=== PATIENT | female | born 1980 | race Caucasian/White ===

== ENCOUNTER 2017-03-12 15:17 | Emergency (ER) | payer OTHER ==
[2017-03-12 17:00] VITALS: BP 164/89
--- OUTSIDE RECORDS SUMMARY | 2017-03-12 17:27 | XMS REPORT | Continuity of Care Document ---
:1980 Author Organization [facility] ([facility]) Address [address] [place] [address] Phone [phone] Care Team Providers Name Role Phone Sachin Avalos Primary Care Provider [phone] Source Comments This disclosure is being made pursuant to the Care Everywhere program, applicable federal and state laws, and may not contain all informaitonavailable regarding this patient.[facility] ([facility]) Active Allergies and Adverse Reactions Allergen Noted Date Severity Reactions Comments Sumatriptan Pruritus,Nausea & Vomiting,Flushing Current Medications Prescription Sig. Disp. Refills Start Date End Date Status propranolol (INDERAL take 60 mg by mouth Active LA) 60 mg cap daily. topiramate (TOPIRAGEN) Take 25 mg by mouth 2 Active 25 mg tablet times daily. LORazepam 1 mg tablet Take 1 mg by mouth 4 Active times daily. omeprazole 20 mg Take 20 mg by mouth Active extended release daily. capsule cyclobenzaprine 10 mg Take 10 mg by mouth 3 Active tablet times daily as needed. 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 Medication monitoring encounter 12/22/2013 Overview: methimazole Abnormal thyroid function test 12/22/2013 Overview: 12/20/13 Throat pain 02/16/2009 Headache(784.0) 02/16/2009 Thyrotoxicosis without mention of goiter or other cause, without mention 01/08 of thyrotoxic crisis or storm Social History Tobacco Use Types Packs/Day Years Used Date Current Every Day Smoker 0.5 Tobacco Cessation:Ready to Quit: No; Counseling Given: Yes Comments: Alcohol Use Drinks/Week oz/Week Comments Yes Last Filed Vital Signs Vital Sign Reading Time Taken Blood Pressure 142/78 12/20/2013 2:47 PM FLIGHT FOLLOWER Pulse 83 12/20/2013 2:47 PM FLIGHT FOLLOWER Temperature 36.3 C (97.3 F) 12/20/2013 2:47 PM FLIGHT FOLLOWER Respiratory Rate 20 05/03/2009 9:15 PM CDT Height 1.68 m (5' 6.14") 12/20/2013 2:47 PM FLIGHT FOLLOWER Weight 116.8 kg (257 lb 8 oz) 12/20/2013 2:47 PM FLIGHT FOLLOWER Body Mass Index 41.38 12/20/2013 2:47 PM FLIGHT FOLLOWER Oxygen Saturation 98% 05/03/2009 9:15 PM CDT Plan of Care Health Maintenance Due Date Last Done Comments Hepatitis B Vaccine (1 of 3 - Primary Series) 1980 Tdap Vaccine 1989 Lipid Disorder Screening 1996 MMR Vaccine 1996 Td Vaccine 1996 Pneumococcal Vaccine (1 of 1 - PPSV23) 1997 Cervical Cancer Screening 2008 Influenza Vaccine: Seasonal (#1) 06/21/2016 Results from Last 3 Months Not on file
[2017-03-12] MEDS ORDERED: PROMETHAZINE HCL 25 MG/ML AMPUL IM ONE (17:39)
[2017-03-12] MEDS ORDERED: NALBUPHINE HCL 20 MG/ML AMPUL IM ONE (17:39)
[2017-03-12] MEDS ORDERED: PROMETHAZINE HCL 25 MG/ML AMPUL ONE (17:43)
[2017-03-12] MEDS ORDERED: NALBUPHINE HCL 20 MG/ML AMPUL ONE (17:43)
--- NOTE | 2017-03-12 17:50 | ERNOTE ---
Headache ER HPI - Narrative Date of Service: 03/12/17 - General Presenting Symptoms: "migraine" Time Seen by Provider: 03/12/17 17:16 Source: patient Exam Limitations: no limitations - Immun/Allergies/Home Medications Immunizations: IMMUNIZATION HX Immunizations Up to Date Yes History of Influenza Vaccine No Hx Pneumococcal Vaccination No Allergies/Adverse Reactions: Allergies Penicillins Adverse Reaction (Mild, Verified 03/12/17 16:59) MIGRAINE, GI DISTRESS sumatriptan [From Imitrex] Adverse Reaction (Mild, Verified 03/12/17 16:59) N/V sumatriptan succinate [From Imitrex] Adverse Reaction (Mild, Verified 03/12/17 16:59) N/V tramadol Adverse Reaction (Mild, Verified 03/12/17 16:59) N/V, MIGRAINE Home Medications: HOME MEDICATIONS Propranolol HCl [Propranolol HCl ER] 80 mg PO DAILY 11/25/12 [Last Taken ] ALPRAZolam [Xanax] 1 mg PO QID 06/04/15 [Last Taken 04/03/16] Zolpidem Tartrate [Ambien] 10 mg PO HS PRN 06/04/15 [Last Taken 04/03/16] Topiramate [Topamax] 200 mg PO DAILY 02/07/16 [Last Taken 04/03/16] Nabumetone 750 mg PO BID 03/12/17 [Last Taken Unknown] - Pain Pain Score: 9 - History of Present Illness Narrative: Patient is a 36 year old female who presents to the ED with complaints of migraine. Patient states she has a history of migraines and that "this feels like her normal migraines". Denies being "the worst pain in my life". States pain started Tuesday morning, stating that she awoke with pain accompanied with nausea. Denies vomiting or photophobia. States that she has been compliant with all her home medications including HTN and migraine meds. States has had 2 Botox treatments which she just started for migraines and that it has helped a little. Admits to being under excessive stress lately with her grandmother passing away in December and her mother passing away unexpectedly in January. Denies SOB, chest pain, difficulty breathing, seizure or aura Date (Duration): 03/11/17 Activity at onset: other - awoke from sleep with pain Timing of Headache: abrupt, constant, worse Context Headache: Present: other - chronic migraines, states normal pain/ presentation Quality: Present: pressure, sharp, stabbing Severity Maximum: Present: severe Severity-Currently: Present: severe Headache frequency: Present: chronic headaches, similar to previous headache Modifying Factors - (Improves): Reports: other - nothing has helped so far Modifying Factors - (Worsens): Reports: movement Associated Symptoms: Reports: nausea. Denies: fever/chills, vomiting, sweating , nasal congestion, nasal drainage, facial pain, weakness, numbness/tingling, vision changes, light-headedness, dizziness, loss of consciousness, seizures, speech problems Exacerbated by:: Reports: noise, movement, other - smells Prior Treament: Reports: similar symptoms before Review of Systems - Review of Systems Constitutional: Present: other - recent severe stress. Absent: recent illness, fever, chills EYE: Absent: eye pain, eye discharge, blurred vision, double vision, vision changes ENT: Present: no symptoms reported Respiratory: Present: no symptoms reported. Absent: shortness of breath, cough , orthopnea, wheezing Cardiology: Present: no symptoms reported. Absent: chest pain, palpitations, syncope, edema Gastrointestinal/Abdominal: Present: nausea. Absent: vomiting, diarrhea, constipation, abdominal pain, eating less Genitourinary: Present: no symptoms reported Musculoskeletal: Present: no symptoms reported Neurological: Present: anxiety, depressed, headache. Absent: dizziness/light- headedness, seizure, weakness, numbness, tingling Endocrine: Present: no symptoms reported Hematologic/Lymphatic: Present: no symptoms reported Psych: Present: no symptoms reported - Patient's Past Medical History Patient History - Medical: Anxiety, Depression, GERD, Headache, Migraines Patient History - Cardiac/Respiratory: Hypertension Patient History - Cancer: No Hx of Cancer Patient History - Surgical Procedures: Cholecystectomy, D & C, Hysterectomy, Tubal Ligation Patient History - Other: None LMP (females 10-50): other LMP (Calendar): 12/06/15 - Family History Mother Family History - Medical: Diabetes Type 2, Depression, GERD, Migraines Family History - Cardiac/Respiratory: No pertinent hx Father Family History - Medical: Diabetes Type 2, GERD Family History - Cardiac/Respiratory: Myocardial Infarction, Other - Social History Living Situations: home Abuse History: No History of abuse Psych History: Hx of Anxiety, Hx of Depression Does anyone smoke in the home?: Yes Smoking Status: Current every day smoker Alcohol Use: occasionally Drug Use: none - Immunizations Immunizations Up to Date: Yes Hx Pneumococcal Vaccination: No History of Influenza Vaccine: No Physical Exam - Physical Exam General Appearance: Present: wd/wn, alert, no apparent distress, crying Eye Exam: Normal inspection: bilateral, PERRL: bilateral Ears, Nose, Throat: Present: normal ENT inspection, normal pharynx Neck: Present: normal inspection, nontender, supple, full range of motion. Absent: lymphadenopathy (R), lymphadenopathy (L) Respiratory: Present: no respiratory distress, normal breath sounds, no accessory muscle use, chest nontender, lungs clear Cardiovascular/Chest: Present: regular rate, rhythm, no murmur, normal peripheral pulses Peripheral Pulses: N=norm/S=strong/W=weak/B=bound/A=absent: Radial (R): Normal, Radial (L): Normal Gastrointestinal/Abdominal: Present: normal bowel sounds, nontender, nondistended, soft, no organomegaly Rectal Exam: Present: deferred Back Exam: Present: normal inspection, normal range of motion, no CVA tenderness , no vertebral tenderness Extremity Exam: Present: normal inspection, non-tender, normal range of motion, no edema Neurological Exam: Present: alert, oriented, normal mood/affect, no motor/ sensory deficits Skin Exam: Present: normal color, warm/dry. Absent: diaphoresis, cyanosis, jaundice, skin rash Lymphatic Exam: Present: no adenopathy ED Progress - Vital Signs Patient's Vital Signs:: I have reviewed the patient's vital signs. Vital Signs: Vital Signs 03/12/17 16:57 Temperature 36.6 C Pulse Rate 77 Respiratory 16 Rate Blood Pressure 164/89 O2 Sat by Pulse 100 Oximetry - Progress/Reassessment Chief Complaint: Headache Progress:: Improved Departure Clinical Impression: Chronic migraine without aura Qualifiers: Status migrainosus presence: without status migrainosus Intractability: not intractable Qualified Code(s): G43.709 - Chronic migraine without aura, not intractable, without status migrainosus - Departure Disposition: Home self-care Condition: Good Instructions: Recurrent Migraine Headache, [id number] Additional Instructions: Continue previously prescribed medications. 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 Return if migraines worsen or seizure, dizziness or changes in vision occur. Referrals: Silvia Monk ARNP [Primary Care Provider] -
== END 2017-03-12 18:25 | disposition home or self-care (01) ==
LOC: ER 15:17
DX: G43.709 Chronic migraine without aura, not intractable, without status migrainosus (principal); F17.210 Nicotine dependence, cigarettes, uncomplicated; F41.9 Anxiety disorder, unspecified; F32.9 Major depressive disorder, single episode, unspecified

== ENCOUNTER 2017-03-26 17:10 | Emergency (ER) | payer OTHER ==
[2017-03-26 17:20] VITALS: BP 163/88
--- NOTE | 2017-03-26 17:50 | ERNOTE ---
Integumentary HPI - Narrative Date of Service: 03/26/17 - General Presenting Symptoms: insect bite Time Seen by Provider: 03/26/17 17:43 Source: patient Exam Limitations: no limitations - Immun/Allergies/Home Medications Immunizations: IMMUNIZATION HX Immunizations Up to Date Yes History of Influenza Vaccine No Hx Pneumococcal Vaccination No Allergies/Adverse Reactions: Allergies Allergy/AdvReac Type Severity Reaction Status Date / Time Penicillins AdvReac Mild MIGRAINE, Verified 03/26/17 17:20 GI DISTRESS sumatriptan [From Imitrex] AdvReac Mild N/V Verified 03/26/17 17:20 sumatriptan succinate AdvReac Mild N/V Verified 03/26/17 17:20 [From Imitrex] tramadol AdvReac Mild N/V, Verified 03/26/17 17:20 MIGRAINE Home Medications: HOME MEDICATIONS Propranolol HCl [Propranolol HCl ER] 80 mg PO DAILY 11/25/12 [Last Taken ] ALPRAZolam [Xanax] 1 mg PO QID 06/04/15 [Last Taken 04/03/16] Zolpidem Tartrate [Ambien] 10 mg PO HS PRN 06/04/15 [Last Taken 04/03/16] Topiramate [Topamax] 200 mg PO DAILY 02/07/16 [Last Taken 04/03/16] Nabumetone 750 mg PO BID 03/12/17 [Last Taken Unknown] Clindamycin HCl [Cleocin HCl] 300 mg PO TID #30 capsule 03/26/17 [Last Taken Unknown] HYDROcodone/ACETAMINOPHEN [[place] 5-325] 1 each PO DAILY 03/26/17 [Last Taken Unknown] - Pain Pain Score: 2 - History of Present Illness Narrative: 36-year-old female presents emergency room for a bout bite to her chest. Patient states that a spider fell down her shirt and then her several days ago. Patient states that the area is red and tender and she has been unable to express any fluid from the site Date (Duration): 03/26/17 Location: Reports: torso Quality: Reports: painful Severity: mild Exposure: Reports: insect bite/spider Modifying Factors - (Improves): Reports: nothing Modifying Factors - (Worsens): Reports: nothing Associated Symptoms: Reports: denies symptoms Review of Systems - Review of Systems Constitutional: Present: no symptoms reported EYE: Present: no symptoms reported ENT: Present: no symptoms reported Respiratory: Present: no symptoms reported Cardiology: Present: no symptoms reported Gastrointestinal/Abdominal: Present: no symptoms reported Genitourinary: Present: no symptoms reported Musculoskeletal: Present: no symptoms reported Skin: Present: See HPI, lesions Neurological: Present: no symptoms reported Endocrine: Present: no symptoms reported Hematologic/Lymphatic: Present: no symptoms reported Psych: Present: no symptoms reported - Patient's Past Medical History Patient History - Medical: Anxiety, Depression, GERD, Headache, Migraines Patient History - Cardiac/Respiratory: Hypertension Patient History - Cancer: No Hx of Cancer Patient History - Surgical Procedures: Cholecystectomy, D & C, Hysterectomy, Tubal Ligation Patient History - Other: None LMP (Calendar): 12/06/15 - Family History Mother Family History - Medical: Diabetes Type 2, Depression, GERD, Migraines Family History - Cardiac/Respiratory: No pertinent hx Father Family History - Medical: Diabetes Type 2, GERD Family History - Cardiac/Respiratory: Myocardial Infarction, Other - Social History Living Situations: home Abuse History: No History of abuse Psych History: Hx of Anxiety, Hx of Depression Does anyone smoke in the home?: Yes Smoking Status: Current every day smoker Have you smoked in the past 12 months: Yes Alcohol Use: occasionally Drug Use: none - Immunizations Immunizations Up to Date: Yes Hx Pneumococcal Vaccination: No History of Influenza Vaccine: No Physical Exam - Physical Exam Narrative: patients insect bite is red, warm and tender. It is firm and in the upper center part of her sternum. General Appearance: Present: wd/wn, alert, no apparent distress Eye Exam: Normal inspection: bilateral Ears, Nose, Throat: Present: normal ENT inspection Neck: Present: normal inspection, nontender, full range of motion. Absent: lymphadenopathy (R), lymphadenopathy (L) Respiratory: Present: no respiratory distress, normal breath sounds, no accessory muscle use, lungs clear Cardiovascular/Chest: Present: regular rate, rhythm, no murmur, normal peripheral pulses Gastrointestinal/Abdominal: Present: normal bowel sounds, nontender, nondistended, soft, no organomegaly Back Exam: Present: normal inspection, normal range of motion, no CVA tenderness , no vertebral tenderness Extremity Exam: Present: normal inspection, normal range of motion, no edema Neurological Exam: Present: alert, oriented, normal mood/affect, no motor/ sensory deficits Skin Exam: Present: other - see note, Rest of skin is WNL Lymphatic Exam: Present: no adenopathy. Absent: axilla node (R), axilla node (L ) ED Progress - Vital Signs Patient's Vital Signs:: I have reviewed the patient's vital signs. Vital Signs: Vital Signs 03/26/17 17:16 Temperature 37.1 C Pulse Rate 93 Respiratory 16 Rate Blood Pressure 163/88 O2 Sat by Pulse 99 Oximetry - Progress/Reassessment Chief Complaint: Cellulitis Progress:: Unchanged Departure Clinical Impression: Cellulitis Qualifiers: Site of cellulitis: trunk Site of cellulitis of trunk: chest wall Qualified Code(s): L03.313 - Cellulitis of chest wall - Departure Disposition: Home Follow Up Needed Condition: Stable Instructions: Cellulitis, Adult, [id number] Additional Instructions: Continue any previous home medications directed. Take antibiotics as instructed. She may take [id number] pain medications as needed for pain. Return to the emergency room if signs symptoms of infection continued persistent or worsening symptoms arise. Follow-up with your primary care provider in the next 2-3 days. Referrals: Silvia Monk ARNP [Primary Care Provider] - Prescriptions: Clindamycin HCl [Cleocin HCl] 300 mg PO TID #30 capsule
--- OUTSIDE RECORDS SUMMARY | 2017-03-26 17:55 | XMS REPORT | Continuity of Care Document ---
:1980 Author Organization [facility] ([facility]) Address [address] [place] [address] Phone [phone] Care Team Providers Name Role Phone Sachin Avalos Primary Care Provider [phone] Source Comments This disclosure is being made pursuant to the Care Everywhere program, applicable federal and state laws, and may not contain all informaitonavailable regarding this patient.[facility] ([facility]) Active Allergies and Adverse Reactions Allergen Noted [...] Taken Blood Pressure 142/78 12/20/2013 2:47 PM STOGY MAKER Pulse 83 12/20/2013 2:47 PM STOGY MAKER Temperature 36.3 C (97.3 F) 12/20/2013 2:47 PM STOGY MAKER Respiratory Rate 20 05/03/2009 9:15 PM CDT Height 1.68 m (5' 6.14") 12/20/2013 2:47 PM STOGY MAKER Weight 116.8 kg (257 lb 8 oz) 12/20/2013 2:47 PM STOGY MAKER Body Mass Index 41.38 12/20/2013 2:47 PM STOGY MAKER Oxygen Saturation 98% 05/03/2009 9:15 PM CDT [...]
== END 2017-03-26 17:50 | disposition home or self-care (01) ==
LOC: ER 17:10
DX: L03.313 Cellulitis of chest wall (principal); F17.210 Nicotine dependence, cigarettes, uncomplicated; F41.9 Anxiety disorder, unspecified; F32.9 Major depressive disorder, single episode, unspecified; I10 Essential (primary) hypertension

== ENCOUNTER 2017-03-28 19:25 | Emergency (ER) | payer OTHER ==
[2017-03-28] MEDS ORDERED: NALBUPHINE HCL 20 MG/ML AMPUL IM ONE (20:20)
[2017-03-28] MEDS ORDERED: PROMETHAZINE HCL 25 MG/ML AMPUL IM ONE (20:21)
[2017-03-28] MEDS ORDERED: PROMETHAZINE HCL 25 MG/ML AMPUL ONE (20:25)
[2017-03-28] MEDS ORDERED: NALBUPHINE HCL 20 MG/ML AMPUL ONE (20:25)
--- NOTE | 2017-03-28 20:26 | ERNOTE ---
Headache ER HPI - Narrative Date of Service: 03/28/17 - General Presenting Symptoms: "migraine" Time Seen by Provider: 03/28/17 20:18 Source: patient Exam Limitations: no limitations - Immun/Allergies/Home Medications Immunizations: IMMUNIZATION HX Immunizations Up to Date Yes History of Influenza Vaccine No Hx Pneumococcal Vaccination No Allergies/Adverse Reactions: Allergies Penicillins Adverse Reaction (Mild, Verified 03/26/17 17:20) MIGRAINE, GI DISTRESS sumatriptan [From Imitrex] Adverse Reaction (Mild, Verified 03/26/17 17:20) N/V sumatriptan succinate [From Imitrex] Adverse Reaction (Mild, Verified 03/26/17 17:20) N/V tramadol Adverse Reaction (Mild, Verified 03/26/17 17:20) N/V, MIGRAINE Home Medications: HOME MEDICATIONS Propranolol HCl [Propranolol HCl ER] 80 mg PO DAILY 11/25/12 [Last Taken ] ALPRAZolam [Xanax] 1 mg PO QID 06/04/15 [Last Taken 04/03/16] Zolpidem Tartrate [Ambien] 10 mg PO HS PRN 06/04/15 [Last Taken 04/03/16] Topiramate [Topamax] 200 mg PO DAILY 02/07/16 [Last Taken 04/03/16] Nabumetone 750 mg PO BID 03/12/17 [Last Taken Unknown] Clindamycin HCl [Cleocin HCl] 300 mg PO TID #30 capsule 03/26/17 [Last Taken Unknown] HYDROcodone/ACETAMINOPHEN [[place] 5-325] 1 each PO DAILY 03/26/17 [Last Taken Unknown] Amitriptyline HCl [Elavil] 50 mg PO DAILY PRN 03/28/17 [Last Taken Unknown] - Pain Pain Score: 7 - History of Present Illness Narrative: patient is having a migraine. she has taken OTC and her PRN medications for her HERNANDEZ and has not been able to get relief. Date (Duration): 03/28/17 Timing of Headache: gradual Context Headache: Present: new onset Quality: Present: achy Severity Maximum: Present: moderate Severity-Currently: Present: moderate Headache frequency: Present: chronic headaches Modifying Factors - (Improves): Reports: rest, medication Modifying Factors - (Worsens): Reports: movement, exposure to light Associated Symptoms: Reports: nausea. Denies: fever/chills, vomiting, fatigue, vision changes, dizziness, loss of consciousness, seizures, speech problems Exacerbated by:: Reports: light, noise, movement, other - smell Prior Treament: Reports: similar symptoms before Review of Systems - Review of Systems Constitutional: Present: See HPI, fatigue EYE: Present: no symptoms reported ENT: Present: no symptoms reported Respiratory: Present: no symptoms reported Cardiology: Present: no symptoms reported Gastrointestinal/Abdominal: Present: See HPI, nausea Genitourinary: Present: no symptoms reported Musculoskeletal: Present: no symptoms reported Skin: Present: no symptoms reported Neurological: Present: See HPI, headache. Absent: dizziness/light-headedness, tingling Endocrine: Present: no symptoms reported Hematologic/Lymphatic: Present: no symptoms reported Psych: Present: no symptoms reported - Patient's Past Medical History Patient History - Medical: Anxiety, Depression, GERD, Headache, Migraines, Other Patient History - Cardiac/Respiratory: Hypertension Patient History - Cancer: No Hx of Cancer Patient History - Surgical Procedures: Cholecystectomy, D & C, Hysterectomy, Tubal Ligation Patient History - Other: None LMP (Calendar): 12/06/15 - Family History Mother Family History - Medical: Diabetes Type 2, Depression, GERD, Migraines Family History - Cardiac/Respiratory: No pertinent hx Father Family History - Medical: Diabetes Type 2, GERD, Other Family History - Cardiac/Respiratory: Hypertension Family History - Cancer: No pertinent family hx - Social History Living Situations: alone Abuse History: No History of abuse Psych History: Hx of Anxiety, Hx of Depression Does anyone smoke in the home?: Yes Smoking Status: Current every day smoker Have you smoked in the past 12 months: Yes Alcohol Use: rarely Drug Use: none - Immunizations Immunizations Up to Date: Yes Hx Pneumococcal Vaccination: No History of Influenza Vaccine: No Physical Exam - Physical Exam Narrative: patient has light sensitivity. General Appearance: Present: wd/wn, alert, no apparent distress Eye Exam: Normal inspection: bilateral Ears, Nose, Throat: Present: normal ENT inspection, normal pharynx Neck: Present: normal inspection Respiratory: Present: no respiratory distress, normal breath sounds, lungs clear Cardiovascular/Chest: Present: regular rate, rhythm, no murmur, normal peripheral pulses Gastrointestinal/Abdominal: Present: normal bowel sounds, nontender, soft Back Exam: Present: normal inspection, normal range of motion, no CVA tenderness , no vertebral tenderness Extremity Exam: Present: normal inspection, normal range of motion, no edema Neurological Exam: Present: alert, oriented, normal mood/affect, no motor/ sensory deficits Skin Exam: Present: normal color, warm/dry Lymphatic Exam: Present: no adenopathy ED Progress - Vital Signs Patient's Vital Signs:: I have reviewed the patient's vital signs. Vital Signs: Vital Signs 03/28/17 19:46 Temperature 36.9 C Pulse Rate 82 Respiratory 16 Rate Blood Pressure 143/91 O2 Sat by Pulse 98 Oximetry - Progress/Reassessment Chief Complaint: Headache Departure Clinical Impression: Migraine Qualifiers: Migraine type: unspecified Status migrainosus presence: without status migrainosus Intractability: not intractable Qualified Code(s): G43.909 - Migraine, unspecified, not intractable, without status migrainosus - Departure Disposition: Home self-care Condition: Stable Instructions: Recurrent Migraine Headache, [id number] Additional Instructions: Continue previous home medications. Return to emergency rooms if symptoms return or become worse. Follow-up with her doctor in the next 2-3 days if needed. Referrals: Silvia Monk ARNP [Primary Care Provider] -
--- OUTSIDE RECORDS SUMMARY | 2017-03-28 20:39 | XMS REPORT | Continuity of Care Document ---
:1980 Author Organization [facility] ([facility]) Address [address] [place] [address] Phone [phone] Care Team Providers Name Role Phone Sachin Avalos Primary Care Provider [phone] Source Comments This disclosure is being made pursuant to the Care Everywhere program, applicable federal and state laws, and may not contain all informaitonavailable regarding this patient.[facility] ([facility]) Active Allergies and Adverse Reactions Allergen Noted [...] Taken Blood Pressure 142/78 12/20/2013 2:47 PM VISUAL SUPERVISOR Pulse 83 12/20/2013 2:47 PM VISUAL SUPERVISOR Temperature 36.3 C (97.3 F) 12/20/2013 2:47 PM VISUAL SUPERVISOR Respiratory Rate 20 05/03/2009 9:15 PM CDT Height 1.68 m (5' 6.14") 12/20/2013 2:47 PM VISUAL SUPERVISOR Weight 116.8 kg (257 lb 8 oz) 12/20/2013 2:47 PM VISUAL SUPERVISOR Body Mass Index 41.38 12/20/2013 2:47 PM VISUAL SUPERVISOR Oxygen Saturation 98% 05/03/2009 9:15 PM CDT [...]
[2017-03-28 21:15] VITALS: BP 136/97
== END 2017-03-28 20:50 | disposition home or self-care (01) ==
LOC: ER 19:25
DX: G43.909 Migraine, unspecified, not intractable, without status migrainosus (principal); Z72.0 Tobacco use; F41.8 Other specified anxiety disorders; I10 Essential (primary) hypertension

== ENCOUNTER 2017-04-11 17:47 | Emergency (ER) | payer OTHER ==
--- OUTSIDE RECORDS SUMMARY | 2017-04-11 19:11 | XMS REPORT | Continuity of Care Document ---
:1980 Author Organization [facility] ([facility]) Address [address] [place] [address] Phone [phone] Care Team Providers Name Role Phone Sachin Avalos Primary Care Provider [phone] Source Comments This disclosure is being made pursuant to the Care Everywhere program, applicable federal and state laws, and may not contain all informaitonavailable regarding this patient.[facility] ([facility]) Active Allergies and Adverse Reactions Allergen [...] Taken Blood Pressure 142/78 12/20/2013 2:47 PM [employer]TAINER [employer] Pulse 83 12/20/2013 2:47 PM [employer]TAINER [employer] Temperature 36.3 C (97.3 F) 12/20/2013 2:47 PM CONTAINER [employer] Respiratory Rate 20 05/03/2009 9:15 PM CDT Height 1.68 m (5' 6.14") 12/20/2013 2:47 PM [employer]TAINER [employer] Weight 116.8 kg (257 lb 8 oz) 12/20/2013 2:47 PM [employer]TAINER [employer] Body Mass Index 41.38 12/20/2013 2:47 PM [employer]TAINER [employer] Oxygen Saturation 98% 05/03/2009 9:15 PM [...]
[2017-04-11] MEDS ORDERED: diphenhydrAMINE HCL 50 MG/ML VIAL IM ONE (19:12)
[2017-04-11] MEDS ORDERED: METOCLOPRAMIDE HCL 5 MG/ML VIAL IM ONE (19:12)
[2017-04-11] MEDS ORDERED: diphenhydrAMINE HCL 50 MG/ML VIAL ONE (19:13)
[2017-04-11] MEDS ORDERED: METOCLOPRAMIDE HCL 5 MG/ML VIAL ONE (19:13)
--- NOTE | 2017-04-11 19:15 | ERNOTE ---
Headache ER HPI - General Presenting Symptoms: headache, "migraine" Time Seen by Provider: 04/11/17 19:03 Exam Limitations: no limitations - Immun/Allergies/Home Medications Immunizations: IMMUNIZATION HX Immunizations Up to Date Yes History of Influenza Vaccine No Hx Pneumococcal Vaccination No Allergies/Adverse Reactions: Allergies Penicillins Adverse Reaction (Mild, Verified 03/26/17 17:20) MIGRAINE, GI DISTRESS sumatriptan [From Imitrex] Adverse Reaction (Mild, Verified 03/26/17 17:20) N/V sumatriptan succinate [From Imitrex] Adverse Reaction (Mild, Verified 03/26/17 17:20) N/V tramadol Adverse Reaction (Mild, Verified 03/26/17 17:20) N/V, MIGRAINE Home Medications: HOME MEDICATIONS Propranolol HCl [Propranolol HCl ER] 80 mg PO DAILY 11/25/12 [Last Taken ] ALPRAZolam [Xanax] 1 mg PO QID 06/04/15 [Last Taken 04/03/16] Zolpidem Tartrate [Ambien] 10 mg PO HS PRN 06/04/15 [Last Taken 04/03/16] Topiramate [Topamax] 200 mg PO DAILY 02/07/16 [Last Taken 04/03/16] Nabumetone 750 mg PO BID 03/12/17 [Last Taken Unknown] Clindamycin HCl [Cleocin HCl] 300 mg PO TID #30 capsule 03/26/17 [Last Taken Unknown] HYDROcodone/ACETAMINOPHEN [Cornish 5-325] 1 each PO DAILY 03/26/17 [Last Taken Unknown] Amitriptyline HCl [Elavil] 50 mg PO DAILY PRN 03/28/17 [Last Taken Unknown] Prochlorperazine [Compazine] 25 mg RC BID PRN #14 supp.rect 04/11/17 [Last Taken Unknown] - Pain Pain Score: 8 - History of Present Illness Narrative: Patient presents with a recurrent migraine. Patient was here 2 weeks ago for a similar headache, she was given Nubain and Phenergan and felt better and went home. She returns here today requesting narcotics and antibiotics for her headache. Patient was told that we don't routinely give narcotics for migraine headaches anymore Timing of Headache: gradual, constant Quality: Present: throbbing Severity Maximum: Present: moderate Severity-Currently: Present: moderate Headache frequency: Present: frequent headaches, similar to previous headache Modifying Factors - (Improves): Reports: rest Modifying Factors - (Worsens): Reports: rest Associated Symptoms: Reports: nausea Exacerbated by:: Reports: light, noise Prior Treament: Reports: recently seen Review of Systems - Review of Systems Constitutional: Present: See HPI EYE: Present: no symptoms reported ENT: Present: no symptoms reported Respiratory: Present: no symptoms reported Cardiology: Present: no symptoms reported Gastrointestinal/Abdominal: Present: no symptoms reported Genitourinary: Present: no symptoms reported Musculoskeletal: Present: no symptoms reported Skin: Present: no symptoms reported Neurological: Present: See HPI, headache Endocrine: Present: no symptoms reported Hematologic/Lymphatic: Present: no symptoms reported Psych: Present: no symptoms reported - Patient's Past Medical History Patient History - Medical: Anxiety, Depression, GERD, Headache, Migraines, Other Patient History - Cardiac/Respiratory: Hypertension Patient History - Cancer: No Hx of Cancer Patient History - Surgical Procedures: Cholecystectomy, D & C, Hysterectomy, Tubal Ligation Patient History - Other: None LMP (Calendar): 12/06/15 - Family History Mother Family History - Medical: Diabetes Type 2, Depression, GERD, Migraines Family History - Cardiac/Respiratory: No pertinent hx Father Family History - Medical: Diabetes Type 2, GERD, Other Family History - Cardiac/Respiratory: Hypertension Family History - Cancer: No pertinent family hx - Social History Living Situations: home Abuse History: No History of abuse Psych History: Hx of Anxiety, Hx of Depression Does anyone smoke in the home?: Yes Smoking Status: Current every day smoker Have you smoked in the past 12 months: Yes Alcohol Use: rarely Drug Use: none - Immunizations Immunizations Up to Date: Yes Hx Pneumococcal Vaccination: No History of Influenza Vaccine: No Physical Exam - Physical Exam General Appearance: Present: wd/wn, alert, moderate distress Eye Exam: Normal inspection: bilateral, PERRL: bilateral Ears, Nose, Throat: Present: normal ENT inspection, H, normal pharynx Neck: Present: normal inspection, nontender Respiratory: Present: no respiratory distress, normal breath sounds, no accessory muscle use, chest nontender, lungs clear Cardiovascular/Chest: Present: regular rate, rhythm, no murmur, normal peripheral pulses Gastrointestinal/Abdominal: Present: normal bowel sounds, nontender, nondistended, soft, no organomegaly Rectal Exam: Present: deferred Back Exam: Present: normal inspection, normal range of motion Extremity Exam: Present: normal inspection, non-tender, no edema, normal range of motion Neurological Exam: Present: alert, oriented, normal mood/affect Skin Exam: Present: normal color, warm/dry Lymphatic Exam: Present: no adenopathy ED Progress - Vital Signs Patient's Vital Signs:: I have reviewed the patient's vital signs. Vital Signs: Vital Signs 04/11/17 18:03 Temperature 36.8 C Pulse Rate 75 Respiratory 16 Rate Blood Pressure 140/89 O2 Sat by Pulse 98 Oximetry - Progress/Reassessment Chief Complaint: Headache Progress:: Unchanged Plan - Plan Plan: Patient was advised that we do not give narcotics for headaches anymore as they been proven to show the likelihood of analgesia rebound as well as the likelihood of narcotic dependence. She was distressed because she got Nubain 2 weeks ago and was here specifically to get more Nubain. She was given 10 Reglan and 50 of Benadryl IM and she is requesting to go home. Departure Clinical Impression: Migraine Qualifiers: Migraine type: chronic without aura Status migrainosus presence: without status migrainosus Intractability: not intractable Qualified Code(s): G43.709 - Chronic migraine without aura, not intractable, without status migrainosus - Departure Disposition: Home self-care Condition: Good Instructions: Recurrent Migraine Headache, [id number] Referrals: Silvia Monk ARNP [Primary Care Provider] - Prescriptions: Prochlorperazine [Compazine] 25 mg RC BID PRN #14 supp.rect PRN Reason: Headache
[2017-04-11 19:21] VITALS: BP 139/73
== END 2017-04-11 19:50 | disposition home or self-care (01) ==
LOC: ER 17:47
DX: G43.709 Chronic migraine without aura, not intractable, without status migrainosus (principal); Z72.0 Tobacco use

== ENCOUNTER 2017-06-05 14:53 | Emergency (ER) | payer OTHER ==
[2017-06-05] MEDS ORDERED: PROMETHAZINE HCL 50 MG/ML AMPUL IM ONE ×3 (15:34→15:57)
[2017-06-05] MEDS ORDERED: diphenhydrAMINE HCL 50 MG/ML VIAL IM ONE (15:34)
--- NOTE | 2017-06-05 15:36 | ERNOTE ---
Headache ER HPI - General Presenting Symptoms: "migraine" Time Seen by Provider: 06/05/17 15:25 Source: patient Exam Limitations: no limitations - Immun/Allergies/Home Medications Immunizations: IMMUNIZATION HX Immunizations Up to Date Yes History of Influenza Vaccine No Hx Pneumococcal Vaccination No Allergies/Adverse Reactions: Allergies Penicillins Adverse Reaction (Mild, Verified 06/05/17 15:02) MIGRAINE, GI DISTRESS sumatriptan [From Imitrex] Adverse Reaction (Mild, Verified 06/05/17 15:02) N/V sumatriptan succinate [From Imitrex] Adverse Reaction (Mild, Verified 06/05/17 15:02) N/V tramadol Adverse Reaction (Mild, Verified 06/05/17 15:02) N/V, MIGRAINE Home Medications: HOME MEDICATIONS Propranolol HCl [Propranolol HCl ER] 80 mg PO DAILY 11/25/12 [Last Taken ] ALPRAZolam [Xanax] 1 mg PO QID 06/04/15 [Last Taken 04/03/16] Zolpidem Tartrate [Ambien] 10 mg PO HS PRN 06/04/15 [Last Taken 04/03/16] Topiramate [Topamax] 200 mg PO DAILY 02/07/16 [Last Taken 04/03/16] Nabumetone 750 mg PO BID 03/12/17 [Last Taken Unknown] Clindamycin HCl [Cleocin HCl] 300 mg PO TID #30 capsule 03/26/17 [Last Taken Unknown] HYDROcodone/ACETAMINOPHEN [Ramona 5-325] 1 each PO DAILY 03/26/17 [Last Taken Unknown] Amitriptyline HCl [Elavil] 50 mg PO DAILY PRN 03/28/17 [Last Taken Unknown] Prochlorperazine [Compazine] 25 mg RC BID PRN #14 supp.rect 04/11/17 [Last Taken Unknown] - History of Present Illness Narrative: Patient started with a headache yesterday, it feels like her regular right sided migraines Date (Duration): 06/04/17 Time (Timing): 12:00 Timing of Headache: gradual Severity Maximum: Present: severe Headache frequency: Present: frequent headaches, similar to previous headache Modifying Factors - (Worsens): Reports: movement, exposure to light Exacerbated by:: Reports: light, noise Prior Treament: Reports: similar symptoms before Review of Systems - Review of Systems Constitutional: Absent: fever ENT: Absent: nose congestion, sore throat Respiratory: Absent: shortness of breath, cough Cardiology: Absent: chest pain Gastrointestinal/Abdominal: Present: nausea, vomiting. Absent: diarrhea, abdominal pain Genitourinary: Present: no symptoms reported Musculoskeletal: Absent: neck pain Neurological: Present: See HPI, headache. Absent: weakness, numbness - Patient's Past Medical History Patient History - Medical: Anxiety, Depression, GERD, Headache, Migraines, Other Patient History - Cardiac/Respiratory: Hypertension Patient History - Cancer: No Hx of Cancer Patient History - Surgical Procedures: Cholecystectomy, D & C, Hysterectomy, Tubal Ligation Patient History - Other: None LMP (females 10-50): other LMP (Calendar): 12/06/15 - Family History Mother Family History - Medical: Diabetes Type 2, Depression, GERD, Migraines Family History - Cardiac/Respiratory: No pertinent hx Father Family History - Medical: Diabetes Type 2, GERD, Other Family History - Cardiac/Respiratory: Hypertension Family History - Cancer: No pertinent family hx - Social History Living Situations: home Abuse History: No History of abuse Psych History: Hx of Anxiety, Hx of Depression Does anyone smoke in the home?: Yes Alcohol Use: rarely Drug Use: none - Immunizations Immunizations Up to Date: Yes Hx Pneumococcal Vaccination: No History of Influenza Vaccine: No Physical Exam - Physical Exam General Appearance: Present: wd/wn, alert, mild distress Head Exam: Present: normal inspection Eye Exam: Normal inspection: bilateral, PERRL: bilateral, EOMI: bilateral Ears, Nose, Throat: Present: normal pharynx Neck: Present: normal inspection, nontender, supple, full range of motion Respiratory: Present: no respiratory distress, normal breath sounds, lungs clear Cardiovascular/Chest: Present: regular rate, rhythm, no murmur Neurological Exam: Present: alert, oriented, normal mood/affect Skin Exam: Present: normal color, warm/dry ED Progress - Vital Signs Patient's Vital Signs:: I have reviewed the patient's vital signs. Vital Signs: Vital Signs 06/05/17 15:00 Temperature 36.7 C Pulse Rate 73 Respiratory 16 Rate Blood Pressure 148/98 O2 Sat by Pulse 98 Oximetry - Progress/Reassessment Chief Complaint: Headache Departure Clinical Impression: Migraine Qualifiers: Migraine type: unspecified Status migrainosus presence: without status migrainosus Intractability: not intractable Qualified Code(s): G43.909 - Migraine, unspecified, not intractable, without status migrainosus - Departure Disposition: Home self-care Condition: Good Instructions: Recurrent Migraine Headache, [id number] Referrals: Silvia Monk ARNP [Primary Care Provider] -
[2017-06-05] MEDS ORDERED: diphenhydrAMINE HCL 50 MG/ML VIAL ONE (15:39)
[2017-06-05 19:09] VITALS: BP 138/67
== END 2017-06-05 16:01 | disposition home or self-care (01) ==
LOC: ER 14:53
DX: G43.909 Migraine, unspecified, not intractable, without status migrainosus (principal)

== ENCOUNTER 2017-07-26 23:07 | Emergency (ER) | payer OTHER ==
--- NOTE | 2017-07-26 23:57 | ERNOTE ---
Headache ER HPI - General Presenting Symptoms: "migraine" Time Seen by Provider: 07/26/17 23:43 Source: patient Exam Limitations: no limitations - Immun/Allergies/Home Medications Immunizations: IMMUNIZATION HX Immunizations Up to Date Yes History of Influenza Vaccine No Hx Pneumococcal Vaccination No Allergies/Adverse Reactions: Allergies Penicillins Adverse Reaction (Mild, Verified 06/05/17 15:02) MIGRAINE, GI DISTRESS sumatriptan [From Imitrex] Adverse Reaction (Mild, Verified 06/05/17 15:02) N/V sumatriptan succinate [From Imitrex] Adverse Reaction (Mild, Verified 06/05/17 15:02) N/V tramadol Adverse Reaction (Mild, Verified 06/05/17 15:02) N/V, MIGRAINE Home Medications: HOME MEDICATIONS Propranolol HCl [Propranolol HCl ER] 80 mg PO DAILY 11/25/12 [Last Taken ] ALPRAZolam [Xanax] 1 mg PO QID 06/04/15 [Last Taken 04/03/16] Zolpidem Tartrate [Ambien] 10 mg PO HS PRN 06/04/15 [Last Taken 04/03/16] Topiramate [Topamax] 200 mg PO DAILY 02/07/16 [Last Taken 04/03/16] Nabumetone 750 mg PO BID 03/12/17 [Last Taken Unknown] Amitriptyline HCl [Elavil] 50 mg PO DAILY PRN 03/28/17 [Last Taken Unknown] Rizatriptan Benzoate [Maxalt [employer]] 5 mg PO PRN 07/26/17 [Last Taken Unknown] - Pain Pain Score: 6 - History of Present Illness Narrative: Pt has chronic migraines and has tried using her triptan x 2 without relief. Her headache is right sided as usual and throbbing Timing of Headache: gradual Quality: Present: throbbing Severity Maximum: Present: moderate Severity-Currently: Present: moderate Headache frequency: Present: chronic headaches Prior Treament: Reports: similar symptoms before - Pt had Julio-tox injections approx 2 weeks ago and typically does have a migraine within 2 weeks of those injections then is better for a few months Review of Systems - Review of Systems Constitutional: Absent: recent illness EYE: Present: blurred vision - comes and goes but she believes this is just because she has worked a lot lately and not slept much ENT: Present: no symptoms reported Respiratory: Present: no symptoms reported Cardiology: Present: no symptoms reported Gastrointestinal/Abdominal: Present: nausea. Absent: vomiting Genitourinary: Present: no symptoms reported Musculoskeletal: Absent: neck pain Skin: Present: no symptoms reported Neurological: Present: emotional problems - /stressors in her life lately Endocrine: Present: no symptoms reported Hematologic/Lymphatic: Present: no symptoms reported Psych: Present: no symptoms reported - Patient's Past Medical History Patient History - Medical: Anxiety, Depression, GERD, Headache, Migraines, Other Patient History - Cardiac/Respiratory: Hypertension Patient History - Cancer: No Hx of Cancer Patient History - Surgical Procedures: Cholecystectomy, D & C, Hysterectomy, Tubal Ligation Patient History - Other: None LMP (females 10-50): hysterectomy LMP (Calendar): 12/06/15 - Family History Mother Family History - Medical: Diabetes Type 2, Depression, GERD, Migraines Family History - Cardiac/Respiratory: No pertinent hx Father Family History - Medical: Diabetes Type 2, GERD, Other Family History - Cardiac/Respiratory: Hypertension Family History - Cancer: No pertinent family hx - Social History Living Situations: home Abuse History: No History of abuse Psych History: Hx of Anxiety, Hx of Depression Does anyone smoke in the home?: Yes Smoking Status: Current every day smoker Have you smoked in the past 12 months: Yes Alcohol Use: none Drug Use: none - Immunizations Immunizations Up to Date: Yes Hx Pneumococcal Vaccination: No History of Influenza Vaccine: No Physical Exam - Physical Exam General Appearance: Present: wd/wn, alert, no apparent distress Head Exam: Present: normal inspection, no evidence of injury Eye Exam: Normal inspection: bilateral Neck: Present: normal inspection, nontender, supple Respiratory: Present: no respiratory distress, no accessory muscle use Cardiovascular/Chest: Present: regular rate, rhythm, no murmur Back Exam: Present: normal inspection, normal range of motion Extremity Exam: Present: normal inspection, normal range of motion Neurological Exam: Present: alert, oriented, normal mood/affect Skin Exam: Present: normal color, warm/dry ED Progress - Vital Signs Patient's Vital Signs:: I have reviewed the patient's vital signs. Vital Signs: Vital Signs 07/26/17 23:12 Temperature 36.3 C L Pulse Rate 83 Respiratory 16 Rate Blood Pressure 157/86 O2 Sat by Pulse 100 Oximetry - Progress/Reassessment Chief Complaint: Headache Progress:: Improved Departure Clinical Impression: Migraine Qualifiers: Migraine type: without aura Status migrainosus presence: without status migrainosus Intractability: not intractable Qualified Code(s): G43.009 - Migraine without aura, not intractable, without status migrainosus - Departure Disposition: Home Follow Up Needed Condition: Good Instructions: Recurrent Migraine Headache Additional Instructions: See your doctor as scheduled. Get plenty of sleep. Reduce your caffeine intake slowly over 3-4 weeks. Referrals: Silvia Monk ARNP [Primary Care Provider] -
[2017-07-26] MEDS ORDERED: KETOROLAC TROMETHAMINE 60 MG/2 ML VIAL IM ONE (23:58)
[2017-07-26] MEDS ORDERED: ORPHENADRINE CITRATE 30 MG/ML VIAL IM ONE (23:59)
[2017-07-26] MEDS ORDERED: diphenhydrAMINE HCL 50 MG/ML VIAL IM ONE (23:59)
[2017-07-27] MEDS ORDERED: ONDANSETRON 4 MG TAB.RAPDIS PO ONE (00:01)
[2017-07-27] MEDS ORDERED: ORPHENADRINE CITRATE 30 MG/ML VIAL ONE (00:03)
[2017-07-27] MEDS ORDERED: KETOROLAC TROMETHAMINE 60 MG/2 ML VIAL IM ONE (00:03)
[2017-07-27] MEDS ORDERED: ONDANSETRON 4 MG TAB.RAPDIS ONE (00:24)
[2017-07-27 00:43] VITALS: BP 149/72
== END 2017-07-27 00:41 | disposition home or self-care (01) ==
LOC: ER 23:07
DX: G43.009 Migraine without aura, not intractable, without status migrainosus (principal); F17.200 Nicotine dependence, unspecified, uncomplicated; F41.9 Anxiety disorder, unspecified; F32.9 Major depressive disorder, single episode, unspecified; I10 Essential (primary) hypertension

== ENCOUNTER 2017-10-02 17:25 | Emergency (ER) | payer OTHER ==
[2017-10-02] MEDS ORDERED: diphenhydrAMINE HCL 50 MG/ML VIAL IV ONE (17:44)
[2017-10-02] MEDS ORDERED: KETOROLAC TROMETHAMINE 30 MG/ML VIAL IV ONE (17:44)
[2017-10-02] MEDS ORDERED: METOCLOPRAMIDE HCL 5 MG/ML VIAL IV ONE (17:44)
[2017-10-02] MEDS ORDERED: NORMAL SALINE 1,000 ML IV ONE (17:44)
[2017-10-02] MEDS ORDERED: METOCLOPRAMIDE HCL 5 MG/ML VIAL ONE (17:53)
[2017-10-02] MEDS ORDERED: diphenhydrAMINE HCL 50 MG/ML VIAL ONE (17:53)
[2017-10-02] MEDS ORDERED: KETOROLAC TROMETHAMINE 30 MG/ML VIAL ONE (17:53)
--- NOTE | 2017-10-02 17:53 | ERNOTE ---
Headache ER HPI - General Presenting Symptoms: headache, "migraine", other - patient chipped her right upper incisor Time Seen by Provider: 10/02/17 17:34 Source: patient Exam Limitations: no limitations - Immun/Allergies/Home Medications Immunizations: IMMUNIZATION HX Immunizations Up to Date Yes History of Influenza Vaccine No Hx Pneumococcal Vaccination No Allergies/Adverse Reactions: Allergies Penicillins Adverse Reaction (Mild, Verified 06/05/17 15:02) MIGRAINE, GI DISTRESS sumatriptan [From Imitrex] Adverse Reaction (Mild, Verified 06/05/17 15:02) N/V sumatriptan succinate [From Imitrex] Adverse Reaction (Mild, Verified 06/05/17 15:02) N/V tramadol Adverse Reaction (Mild, Verified 06/05/17 15:02) N/V, MIGRAINE Home Medications: HOME MEDICATIONS Propranolol HCl [Propranolol HCl ER] 80 mg PO DAILY 11/25/12 [Last Taken ] ALPRAZolam [Xanax] 1 mg PO QID 06/04/15 [Last Taken 04/03/16] Zolpidem Tartrate [Ambien] 10 mg PO HS PRN 06/04/15 [Last Taken 04/03/16] Topiramate [Topamax] 200 mg PO DAILY 02/07/16 [Last Taken 04/03/16] Nabumetone 750 mg PO BID 03/12/17 [Last Taken Unknown] Amitriptyline HCl [Elavil] 50 mg PO DAILY PRN 03/28/17 [Last Taken Unknown] Rizatriptan Benzoate [Maxalt Ceramic Engineer] 5 mg PO PRN 07/26/17 [Last Taken Unknown] - History of Present Illness Narrative: Patient presents with one of her migraines, she states she's tried all of her usual remedies at home and has been unsuccessful. She also chipped her right upper incisor which is also giving her some pain she states which may be contributing to her migraine as well. Timing of Headache: gradual, constant Context Headache: Present: other - chronic recurrent migraine Quality: Present: throbbing Severity Maximum: Present: severe Severity-Currently: Present: severe Headache frequency: Present: frequent headaches Modifying Factors - (Improves): Reports: medication Modifying Factors - (Worsens): Reports: exposure to light Associated Symptoms: Reports: nausea Exacerbated by:: Reports: light, noise Prior Treament: Reports: treated by physician Review of Systems - Review of Systems Constitutional: Present: See HPI EYE: Present: no symptoms reported ENT: Present: no symptoms reported Respiratory: Present: no symptoms reported Cardiology: Present: no symptoms reported Gastrointestinal/Abdominal: Present: no symptoms reported Genitourinary: Present: no symptoms reported Musculoskeletal: Present: no symptoms reported Skin: Present: no symptoms reported Neurological: Present: See HPI Endocrine: Present: no symptoms reported Hematologic/Lymphatic: Present: no symptoms reported Psych: Present: no symptoms reported - Patient's Past Medical History Patient History - Medical: Anxiety, Chronic Pain, Depression, GERD, Headache, Migraines, Other Patient History - Cardiac/Respiratory: Hypertension Patient History - Cancer: No Hx of Cancer Patient History - Surgical Procedures: Cholecystectomy, D & C, Hysterectomy, Tubal Ligation Patient History - Other: None - Family History Mother Family History - Medical: Diabetes Type 2, Depression, GERD, Migraines Family History - Cardiac/Respiratory: No pertinent hx Father Family History - Medical: Diabetes Type 2, GERD, Other Family History - Cardiac/Respiratory: Hypertension Family History - Cancer: No pertinent family hx - Social History Living Situations: home Abuse History: No History of abuse Psych History: Hx of Anxiety, Hx of Depression Smoking Status: Current every day smoker Have you smoked in the past 12 months: Yes Do you dip or chew tobacco: No Alcohol Use: none Drug Use: none - Immunizations Immunizations Up to Date: Yes Hx Pneumococcal Vaccination: No History of Influenza Vaccine: No Physical Exam - Physical Exam General Appearance: Present: wd/wn, alert, moderate distress Eye Exam: Normal inspection: bilateral, PERRL: bilateral Ears, Nose, Throat: Present: normal ENT inspection, H, normal pharynx Neck: Present: normal inspection, nontender Respiratory: Present: no respiratory distress, normal breath sounds, no accessory muscle use, chest nontender, lungs clear Cardiovascular/Chest: Present: regular rate, rhythm, no murmur, normal peripheral pulses Gastrointestinal/Abdominal: Present: normal bowel sounds, nontender, nondistended, soft, no organomegaly Rectal Exam: Present: deferred Back Exam: Present: normal inspection, normal range of motion Extremity Exam: Present: normal inspection, non-tender, no edema, normal range of motion Neurological Exam: Present: alert, oriented, normal mood/affect Skin Exam: Present: normal color, warm/dry Lymphatic Exam: Present: no adenopathy ED Progress - Vital Signs Patient's Vital Signs:: I have reviewed the patient's vital signs. Vital Signs: Vital Signs 10/02/17 17:28 Temperature 36.5 C Pulse Rate 80 Respiratory 15 Rate Blood Pressure 131/83 O2 Sat by Pulse 98 Oximetry - Progress/Reassessment Chief Complaint: Headache Plan - Plan Plan: Patient was given normal saline, Reglan, Benadryl and Toradol and headache is down to 4 and she is requesting to go home. Departure Clinical Impression: Migraine Qualifiers: Migraine type: with aura Status migrainosus presence: without status migrainosus Intractability: not intractable Qualified Code(s): G43.109 - Migraine with aura, not intractable, without status migrainosus - Departure Disposition: Home self-care Condition: Good Instructions: Recurrent Migraine Headache, [id number] Referrals: Silvia Monk ARNP [Primary Care Provider] -
[2017-10-02 18:31] VITALS: BP 126/80
== END 2017-10-02 18:41 | disposition home or self-care (01) ==
LOC: ER 17:25
DX: G43.109 Migraine with aura, not intractable, without status migrainosus (principal)